=== PATIENT | male | born 1965 | race Two or more races ===

== ENCOUNTER → 2024-05-27 | Emergency (ER) | payer OTHER ==
[~2024-05-27] VITALS: Ht 172.7 cm; Wt 90.7 kg
[~2024-05-27] MED LIST: BACI3.5O5 EACHEYE; LEVE500T19 PO; LEVETIRACETAM (250 MG) 250 MG TABLET PO ONE
--- NOTE | 2024-05-27 21:05 | NUR ---
BIB [id number] FROM [facility] [address] [facility]
[2024-05-27] MEDS: LEVETIRACETAM (250 MG) 250 MG TABLET PO ONE (22:04)
--- NOTE | 2024-05-28 03:23 | NUR ---
Patient discharged to home in stable condition. Written and verbal after care instructions given. Patient verbalizes understanding of instruction.
[2024-05-28 03:25] VITALS: BP 124/79; TEMP 98; O2SAT 99
== END | disposition home or self-care (01) ==
LOC: ER 20:21
DX: F10.129 Alcohol abuse with intoxication, unspecified (principal); H57.89 Other specified disorders of eye and adnexa; Z79.899 Other long term (current) drug therapy; Y90.0 Blood alcohol level of less than 20 mg/100 ml
CPT/HCPCS: 98960